=== PATIENT | male | born 1955 | race Caucasian/White ===

== ENCOUNTER → 2022-11-28 | Outpatient (CLI) | payer MEDICARE ==
--- NOTE | 2022-11-30 19:43 | MR ---
EXAMINATION TYPE: MR lumbar spine wo con DATE OF EXAM: 11/28/2022 7:39 PM COMPARISON: None CLINICAL INDICATION:Male, 67 years old with history of M54.42 LUMBAGO WITH SCIATICA, LEFT SIDE, Low b ack pain that radiates down left leg to foot TECHNIQUE: Multi planar, multi sequence imaging was performed utilizing: T1-weighted, T2-weighted, a nd turbo inversion recovery imaging of the lumbar spine. IV Contrast: None. FINDINGS: Alignment: The lumbar vertebral bodies have preserved heights and alignment. Cord: The conus medullaris and the distal spinal cord appear unremarkable with regards to their signa l intensity and morphology. Bones/Discs: Bone signal is within normal limits. No abnormal bony edema on inversion recovery sequen usama. Multilevel degenerative disc disease is noted and most pronounced at the L5-S1. Disc desiccation L4-L5 and L5-S1. T12-L1: No evidence of significant spinal canal stenosis or neural foraminal stenosis. L1-L2: No evidence of significant spinal canal stenosis or neural foraminal stenosis. L2-L3: No evidence of significant spinal canal stenosis or neural foraminal stenosis. L3-L4: No evidence of significant spinal canal stenosis or neural foraminal stenosis. L4-L5: No evidence of significant spinal canal stenosis or neural foraminal stenosis. L5-S1: Left subarticular/foraminal disc extrusion which effaces the left forming nerves at L5-S1 (ser ies 301 image 5). There is facet joint arthropathy also present. No evidence for significant spinal c anal stenosis. There is mild bilateral neural foraminal stenosis. Other findings: Bilateral peripelvic renal cysts. IMPRESSION: L5-S1 left central/foraminal disc herniation which displaces the left forming S1-S2 nerves.
== END | disposition home or self-care (01) ==
LOC: RADMRIMAIN 18:52
PROVIDERS: ATTEND Family Medicine
DX: M51.27 Other intervertebral disc displacement, lumbosacral region (principal); M54.42 Lumbago with sciatica, left side
CPT/HCPCS: 72148